=== PATIENT | female | born 1955 | race African-American/Black ===

== ENCOUNTER 2024-06-01 13:57 | Emergency (ER) | payer MEDICAID, MEDICARE ==
[~2024-06-01] VITALS: Ht 170.2 cm; Wt 97.0 kg
[~2024-06-01 13:57] MED LIST: SEE MED SHEET
[2024-06-01 14:18] VITALS: BP 139/89; PULSE 80; RESP 16; TEMP 98.2; O2SAT 97
== END 2024-06-01 14:53 | disposition home or self-care (01) ==
LOC: ER 14:06
DX: G89.29 Other chronic pain (principal); R06.02 Shortness of breath; I11.0 Hypertensive heart disease with heart failure; I50.9 Heart failure, unspecified; J44.9 Chronic obstructive pulmonary disease, unspecified; E78.00 Pure hypercholesterolemia, unspecified
CPT/HCPCS: 71045; 99283

== ENCOUNTER 2024-12-25 14:07 | Emergency (ER) | payer MEDICARE, MEDICAID ==
[~2024-12-25] VITALS: Ht 172.7 cm; Wt 95.0 kg
[2024-12-25 14:10] VITALS: O2SAT 96
[2024-12-25 14:59] LABS: BASOPHILS % 1.3 % (0.0-2.0); EOSINOPHILS % 3.1 % (0.0-5.0); HEMOGLOBIN. 13.8 g/dL (12.0-16.0); LYMPHOCYTES % 16.7 % (20.0-50.0); MEAN CORPUSCULAR HEMOGLOBIN 29.9 pg (28.0-32.0); MEAN CORPUSCULAR HGB CONC 32.1 g/dL (31.0-37.0); MEAN CORPUSCULAR VOLUME 93.3 fL (81.0-99.0); MEAN PLATELET VOLUME 9.6 fl (7.4-10.4); MONOCYTES % 8.5 % (2.0-8.0); NEUTROPHILS % 70.4 % (40.0-76.0); PLATELET 269 x1000/uL (130-400); RED BLOOD CELL COUNT 4.61 mill/uL (4.2-5.4); WHITE BLOOD COUNT 10.6 x1000/uL (4.5-11.0)
[2024-12-25 15:08] LABS: CHLORIDE 106 mEq/L (98-107); POTASSIUM 3.5 mEq/L (3.5-5.1); SODIUM 142 mEq/L (136-145)
[2024-12-25 15:09] LABS: CARBON DIOXIDE 27 mEq/L (21-32)
[2024-12-25 15:12] LABS: PROTHROMBIN TIME 10.7 sec (9.6-11.0)
[2024-12-25 15:14] LABS: CREATININE 0.8 mg/dL (0.6-1.0); GLUCOSE 113 mg/dL (70-105); UREA NITROGEN BLOOD 14 mg/dL (9-23)
[2024-12-25 15:15] LABS: TROPONIN I HIGH SENSITIVITY 4 ng/L (3.0-34)
[2024-12-25 15:16] LABS: ALANINE AMINOTRANSFERASE 13 IU/L (10-49); ALBUMIN 4.2 g/dL (3.2-4.8); ASPARTATE AMINOTRANSFERASE 23 IU/L (<34); BILIRUBIN DIRECT 0.1 mg/dL (<=3.0); BILIRUBIN TOTAL 0.5 mg/dL (0.1-1.0); PROTEIN TOTAL 7.5 g/dL (6.0-8.3)
[2024-12-25 16:51] LABS: TROPONIN I HIGH SENSITIVITY 4 ng/L (3.0-34)
[2024-12-25 17:32] LABS: CLARITY URINE CLOUDY (CLEAR); COLOR URINE YELLOW (YELLOW); GLUCOSE URINE NEGATIVE (NEGATIVE); KETONES URINE NEGATIVE (NEGATIVE); LEUKOCYTE ESTERASE URINE TRACE (NEGATIVE); NITRITE URINE NEGATIVE (NEGATIVE); OCCULT BLOOD URINE NEGATIVE (NEGATIVE); PH URINE 6.5 (4.5-8.0); PROTEIN URINE NEGATIVE (NEGATIVE)
[2024-12-25 18:02] LABS: BACTERIA URINE 3+; RBC URINE 0-2 /hpf (0-2); SQUAMOUS EPITHELIAL CELL URINE 2+ /lpf (RARE/1+)
[2024-12-25 18:03] LABS: WBC URINE 0-2 /hpf (0-2)
[2024-12-25 19:11] VITALS: BP 138/92; PULSE 84; RESP 18; TEMP 36.7; O2SAT 96
== END 2024-12-25 19:17 | disposition home or self-care (01) ==
LOC: ER 14:13
DX: R42 Dizziness and giddiness (principal); I11.0 Hypertensive heart disease with heart failure; I50.9 Heart failure, unspecified; E78.00 Pure hypercholesterolemia, unspecified; J44.89 Other specified chronic obstructive pulmonary disease; Z88.1 Allergy status to other antibiotic agents
CPT/HCPCS: 36415; 71045; 80048; 80076; 81003; 83880; 84484; 85025; 93005; 99285; A4606